=== PATIENT | male | born 1955 | race Caucasian/White ===

== ENCOUNTER 2019-05-10 11:00 | Emergency (ER) | payer OTHER ==
[~2019-05-10] VITALS: Ht 162.6 cm; Wt 67.0 kg
[2019-05-10 11:03] VITALS: BP 106/74
[2019-05-10] MEDS ORDERED: KETOROLAC 30 MG/1 ML ONE (11:28)
[2019-05-10] MEDS ORDERED: KETOROLAC 30 MG/1 ML IM ONE (11:30)
--- NOTE | 2019-05-10 12:14 | NUR ---
Break RN: awaiting rad read, pt in bed, given bottle of water, no other needs at this time.
== END 2019-05-10 12:36 | disposition home or self-care (01) ==
LOC: ED 12:30
DX: S46.911A Strain of unspecified muscle, fascia and tendon at shoulder and upper arm level, right arm, initial encounter (principal); F17.200 Nicotine dependence, unspecified, uncomplicated; X58.XXXA Exposure to other specified factors, initial encounter; Y93.89 Activity, other specified; Y92.89 Other specified places as the place of occurrence of the external cause; Y99.8 Other external cause status
CPT/HCPCS: 73030; 96372; 99283; J1885

== ENCOUNTER 2020-05-09 11:30 | Emergency (ER) | payer MEDICAID, MEDICARE ==
[~2020-05-09] VITALS: Ht 165.1 cm; Wt 74.3 kg
[~2020-05-09 11:30] MED LIST: ACET325T26 PO; AMLO-210 PO; IBUP-1222 PO; IBUP100T11 PO; LISI1TAB23 PO; OXYC5TAB2 PEG
[2020-05-09 11:32] VITALS: BP 121/82
--- NOTE | 2020-05-09 11:41 | NUR ---
BHASKAR SCHULTE AT BS NOW.
--- NOTE | 2020-05-09 12:20 | NUR ---
NEW GAUZE/TAPE DRESSING APPLIED TO ABSCESS ON L NECK. PT STATES HE HAS ADDITIONAL WOUND CARE SUPPLIES AT HOME.
--- NOTE | 2020-05-09 12:25 | NUR ---
D/C INSTRUCTIONS & F/U APPT RV'WD WITH PT, HE VERBALIZES UNDERSTANDING. PT AMBULATED OUT OF ED WITHOUT DIFFICULTY.
== END 2020-05-09 12:37 | disposition home or self-care (01) ==
LOC: ED 12:33
DX: R22.1 Localized swelling, mass and lump, neck (principal); L98.9 Disorder of the skin and subcutaneous tissue, unspecified; J44.9 Chronic obstructive pulmonary disease, unspecified
CPT/HCPCS: 99281

== ENCOUNTER 2020-08-25 16:56 | Emergency (ER) | payer MEDICARE, MEDICAID ==
[~2020-08-25] VITALS: Ht 165.1 cm; Wt 76.0 kg
[2020-08-25 17:08] VITALS: BP 122/87
--- NOTE | 2020-08-25 17:39 | NUR ---
MD GRIMES AT BEDSIDE.
--- NOTE | 2020-08-25 17:45 | NUR ---
64 yo m with complaints of "INFECTION ON MY RIGHT SHOULDER" PT REPORTS HE'S HAD A RECURRENT INFECTION FROM 01/2020. PT REPORTS HE SEES ORTHO MD BUT NEEDS INFECTION TO BE TREATED PRIOR TO SURGERY. PT TO GET PERSCRIPTION FOR ANTIBIOTICS AND BE D/C
--- NOTE | 2020-08-25 18:12 | NUR ---
Patient/Caregiver given discharge instructions and they have confirmed that they understand the instructions. Patient ambulatory with steady gait.
== END 2020-08-25 18:13 | disposition home or self-care (01) ==
LOC: ED 18:07
DX: L02.413 Cutaneous abscess of right upper limb (principal); J44.9 Chronic obstructive pulmonary disease, unspecified; F17.200 Nicotine dependence, unspecified, uncomplicated
CPT/HCPCS: 99283

== ENCOUNTER 2020-11-21 13:12 | Emergency (ER) | payer MEDICARE, MEDICAID ==
[~2020-11-21] VITALS: Ht 165.1 cm; Wt 75.8 kg
--- NOTE | 2020-11-21 14:03 | NUR ---
PT AMBULATORY TO ROOM FROM LOBBY. NO ACUTE DISTRESS.
[2020-11-21 15:25] VITALS: BP 108/78
== END 2020-11-21 15:36 | disposition home or self-care (01) ==
LOC: ED 14:34
DX: M25.511 Pain in right shoulder (principal); I10 Essential (primary) hypertension; J44.9 Chronic obstructive pulmonary disease, unspecified; Z96.611 Presence of right artificial shoulder joint
CPT/HCPCS: 99281